=== PATIENT | female | born 1960 | race Caucasian/White ===

== ENCOUNTER → 2017-02-05 | Outpatient (CLI) | payer BC ==
[~2017-02-05] MED LIST: BYSTOLIC5 MG PO; CALCIUM 600MG+D1 TAB PO; K-DUR 10 MEQ T10 MEQ PO; NICODERM C14 MG/PATC TD; PRINZIDE 12.5 M1 TA1 PO; PROLIA60 MG/ML SC; PROTONIX 40MG T40 MG PO; ULTRAM 50MG TAB50 MG PO; XANAX 0.5MG0.5 MG PO; ZESTRIL 5MG5 MG PO; ZOFRAN 4MG T4 MG/TAB PO; ZOFRAN ODT4 MG PO
== END ==
LOC: MC.RAD 08:00
DX: Z12.31 Encounter for screening mammogram for malignant neoplasm of breast (principal)

== ENCOUNTER 2017-02-11 17:52 | Inpatient (IN) | payer BC ==
[~2017-02-11] VITALS: Ht 157.5 cm; Wt 47.4 kg
[2017-02-11] VITALS (190 sets, daily range): BP systolic 152; BP diastolic 84; PULSE 75; TEMP 99.7; O2SAT 79–100
[~2017-02-11 17:52] MED LIST changes: -NICODERM C14 MG/PATC TD; -PROTONIX 40MG T40 MG PO
[2017-02-11 18:25] LABS: BASO % 0.7 % (0.0-2.0); EOS # 0.1 (0.0-0.7); EOS % 0.9 % (0-4.0); GRAN # 4.3 (1.4-6.5); GRAN % 74.3 % (42.2-75.2); HEMOGLOBIN 13.5 g/dl (12.5-16.0); LYMPH # 0.9 (1.2-3.4); LYMPH % 16.1 % (20.0-51.0); MEAN CELL VOLUME 93 fl (80.0-100.0); MEAN CORPUSCULAR HEMOGLOBIN 35 pg (27.0-31.0); MEAN CORPUSCULAR HGB CONC 37 g/dl (33.0-37.0); MEAN PLATELET VOLUME 8.3 fl (7.4-10.4); MONO # 0.5 (0.1-0.6); MONO % 7.7 % (1.7-9.3); PLATELET COUNT 263 K/mm3 (130-400); RED BLOOD COUNT 3.91 M/mm3 (4.10-5.30); REDCELL DISTRIBUTION WIDTH-CV 11.4 % (11.5-14.5); WHITE BLOOD COUNT 5.8 K/mm3 (4.8-10.8)
[2017-02-11 18:30] LABS: HEMATOCRIT 36.5 % (37.0-47.0)
[2017-02-11 18:51] LABS: ADJUSTED CALCIUM 9.1 mg/dL (8.4-10.2); ALANINE AMINOTRANSFERASE 55 U/L (9-52); ALBUMIN 4.8 gm/dL (3.5-5.0); ALKALINE PHOSPHATASE 75 U/L (50-136); ANION GAP 14 mmol/L (7-16); BILIRUBIN,TOTAL 1.1 mg/dL (0.0-1.0); BLOOD UREA NITROGEN 8 mg/dL (7-17); CALCIUM 9.7 mg/dL (8.4-10.2); CARBON DIOXIDE 26 mmol/L (22-30); GLUCOSE 98 mg/dL (74-106); LIPASE 257 U/L (23-300)
[2017-02-11 18:54] LABS: CHLORIDE 74 mmol/L (98-107); SODIUM 114 mmol/L (137-145)
[2017-02-11 18:58] LABS: POTASSIUM 4.1 mmol/L (3.4-5.0)
[2017-02-11 19:24] LABS: PH 8 (5-8); SQUAMOUS EPITHELIAL None Seen /hpf; URINE APPEARANCE Hazy; URINE BACTERIA None Seen /hpf; URINE BILIRUBIN Negative (NEGATIVE); URINE BLOOD Negative (NEGATIVE); URINE COLOR Yellow; URINE GLUCOSE Negative (NEGATIVE); URINE KETONE Trace (NEGATIVE); URINE RBC 0-2 /hpf; URINE UROBILINOGEN Negative (NEGATIVE); URINE WBC None Seen /hpf
[2017-02-11 20:40] LABS: CALCIUM 9.9 mg/dL (8.4-10.2); CREATININE, serum 0.5 mg/dL (0.52-1.25); POTASSIUM 4.3 mmol/L (3.4-5.0)
[2017-02-11 22:28] LABS: CALCIUM 9.5 mg/dL (8.4-10.2); CREATININE, serum 0.55 mg/dL (0.52-1.25); POTASSIUM 3.8 mmol/L (3.4-5.0)
[2017-02-12] VITALS (701 sets, daily range): BP systolic 89–179; BP diastolic 51–86; PULSE 52–70; TEMP 37; O2SAT 50–100
[2017-02-12 01:25] LABS: CALCIUM 9.2 mg/dL (8.4-10.2); CREATININE, serum 0.64 mg/dL (0.52-1.25); POTASSIUM 3.9 mmol/L (3.4-5.0)
[2017-02-12 03:19] LABS: CALCIUM 8.7 mg/dL (8.4-10.2); CREATININE, serum 0.58 mg/dL (0.52-1.25); POTASSIUM 3.3 mmol/L (3.4-5.0)
[2017-02-12 05:47] LABS: EOS # 0.2 (0.0-0.7); EOS % 5.5 % (0-4.0); GRAN # 1.9 (1.4-6.5); GRAN % 48.4 % (42.2-75.2); HEMATOCRIT 37.6 % (37.0-47.0); HEMOGLOBIN 13.2 g/dl (12.5-16.0); LYMPH # 1.1 (1.2-3.4); LYMPH % 27.9 % (20.0-51.0); MEAN CELL VOLUME 97 fl (80.0-100.0); MEAN CORPUSCULAR HEMOGLOBIN 34 pg (27.0-31.0); MEAN CORPUSCULAR HGB CONC 35 g/dl (33.0-37.0); MEAN PLATELET VOLUME 8.4 fl (7.4-10.4); MONO # 0.6 (0.1-0.6); MONO % 16.7 % (1.7-9.3); PLATELET COUNT 241 K/mm3 (130-400); RED BLOOD COUNT 3.88 M/mm3 (4.10-5.30); REDCELL DISTRIBUTION WIDTH-CV 11.9 % (11.5-14.5); WHITE BLOOD COUNT 3.8 K/mm3 (4.8-10.8)
[2017-02-12 05:55] LABS: ADJUSTED CALCIUM 8.6 mg/dL (8.4-10.2); ALBUMIN 4.2 gm/dL (3.5-5.0); BILIRUBIN,TOTAL 1.3 mg/dL (0.0-1.0); CALCIUM 8.8 mg/dL (8.4-10.2); CREATININE, serum 0.62 mg/dL (0.52-1.25); POTASSIUM 3.4 mmol/L (3.4-5.0); TOTAL PROTEIN 7.2 gm/dL (6.4-8.2)
[2017-02-12 10:23] LABS: CALCIUM 8.8 mg/dL (8.4-10.2); CREATININE, serum 0.58 mg/dL (0.52-1.25); POTASSIUM 3.3 mmol/L (3.4-5.0)
[2017-02-13 00:35] VITALS: BP 150/70; PULSE 60; TEMP 97.7
[2017-02-13 02:27] VITALS: BP 153/76; PULSE 50; TEMP 98.1
[2017-02-13 06:02] VITALS: BP 134/73; PULSE 54
[2017-02-13 07:46] LABS: ADJUSTED CALCIUM 8.3 mg/dL (8.4-10.2); CALCIUM 8.3 mg/dL (8.4-10.2); CREATININE, serum 0.49 mg/dL (0.52-1.25); POTASSIUM 3.6 mmol/L (3.4-5.0); TOTAL PROTEIN 6.8 gm/dL (6.4-8.2)
[2017-02-13 08:31] VITALS: BP 137/81; PULSE 58; TEMP 98.7
[2017-02-13] MEDS ORDERED: NICODERM C14 MG/PATC TD (09:57)
[2017-02-13 10:04] VITALS: BP 146/66; PULSE 59; TEMP 97.6
[2017-02-13] MEDS ORDERED: PROTONIX 40MG T40 MG PO (10:14)
== END 2017-02-13 13:10 | disposition home or self-care (01) | DRG 640 ==
LOC: COL.ER 17:52 → MEDICAL 19:44 → ICU 19:44 → MEDICAL 02-12 14:44
PROVIDERS: Emergency Medicine; Family Medicine; Internal Medicine Nephrology
DX: E87.1 Hypo-osmolality and hyponatremia (principal); E43 Unspecified severe protein-calorie malnutrition; Z68.1 Body mass index [BMI] 19.9 or less, adult; I10 Essential (primary) hypertension; F17.210 Nicotine dependence, cigarettes, uncomplicated; K29.20 Alcoholic gastritis without bleeding; R51 Headache; E87.6 Hypokalemia; F10.20 Alcohol dependence, uncomplicated; Y90.0 Blood alcohol level of less than 20 mg/100 ml
CPT/HCPCS: 99223-AI; 99232-AI; 99239; C9113; J1940; J2405; J2550; J3360; J3480; J7030

== ENCOUNTER → 2018-05-09 | Outpatient (CLI) | payer BC ==
[~2018-05-09] MED LIST changes: +NICODERM C14 MG/PATC TD; +PROTONIX 40MG T40 MG PO
== END ==
LOC: MC.RAD 13:20
DX: Z12.31 Encounter for screening mammogram for malignant neoplasm of breast (principal)

== ENCOUNTER → 2020-01-26 | Outpatient (CLI) | payer BC | LOC: MC.RAD 10:00 | DX: Z12.31 Encounter for screening mammogram for malignant neoplasm of breast (principal) ==

== ENCOUNTER → 2021-01-27 | Outpatient (CLI) | payer BC | LOC: MC.RAD 09:00 | DX: Z12.31 Encounter for screening mammogram for malignant neoplasm of breast (principal) ==

== ENCOUNTER 2021-09-08 19:04 | Emergency (ER) | payer BC ==
[~2021-09-08] VITALS: Ht 157.5 cm; Wt 47.3 kg
[2021-09-08 22:15] VITALS: BP 148/78; PULSE 63; TEMP 98
== END 2021-09-08 22:15 | disposition home or self-care (01) ==
LOC: COL.ER 19:04
DX: R51.9 Headache, unspecified (principal)
CPT/HCPCS: J0780; J1100; J1200; J1885

== ENCOUNTER 2021-11-22 08:45 | Outpatient (RCR) | payer BC | END 2021-11-28 | disposition home or self-care (01) | LOC: WSST | DX: G52.3 Disorders of hypoglossal nerve (principal) ==

== ENCOUNTER 2021-12-20 08:45 | Outpatient (RCR) | payer BC | END 2021-12-28 | disposition home or self-care (01) | LOC: WSST | DX: R47.81 Slurred speech (principal); R13.11 Dysphagia, oral phase; G52.3 Disorders of hypoglossal nerve ==

== ENCOUNTER 2022-01-24 08:45 | Outpatient (RCR) | payer BC | END 2022-01-28 | disposition home or self-care (01) | LOC: WSST | DX: R47.81 Slurred speech (principal); R13.11 Dysphagia, oral phase; G52.3 Disorders of hypoglossal nerve ==

== ENCOUNTER → 2022-02-19 | Outpatient (CLI) | payer BC | LOC: MC.RAD 08:00 | DX: Z12.31 Encounter for screening mammogram for malignant neoplasm of breast (principal) ==

== ENCOUNTER 2022-02-21 12:45 | Outpatient (RCR) | payer BC | END 2022-02-28 | disposition home or self-care (01) | LOC: WSST | DX: R47.81 Slurred speech (principal); R13.11 Dysphagia, oral phase; G52.3 Disorders of hypoglossal nerve ==

== ENCOUNTER → 2022-09-26 | Outpatient (CLI) | payer BC | LOC: COL.RAD 08:00 | DX: Z12.2 Encounter for screening for malignant neoplasm of respiratory organs (principal); F17.200 Nicotine dependence, unspecified, uncomplicated ==

== ENCOUNTER 2023-04-11 11:03 | Emergency (ER) | payer BC ==
[~2023-04-11] VITALS: Ht 157.5 cm; Wt 45.5 kg
[~2023-04-11 11:03] MED LIST changes: +CAMPRAL333 M1; +IBU600 MG PO; +LASIX 20MG TABL20 MG PO; +NORCO 325 MG-51 TAB PO; +SEROQUEL 1100 MG/TAB PO; +TOPROL XL 50MG50 MG PO; +TOPROL XL200 MG PO; +VITAMIN D 400400 IU PO
[2023-04-11 12:01] LABS: COLLECTION METHOD CLEAN CATCH
[2023-04-11 12:30] LABS: URINE APPEARANCE Clear (CLEAR/HAZY); URINE BLOOD Negative (NEGATIVE); URINE COLOR Yellow (YELLOW); URINE GLUCOSE Negative (NEGATIVE); URINE KETONE Negative (NEGATIVE); URINE NITRATE Negative (NEGATIVE); URINE PROTEIN(semi-quant) 1+ (NEGATIVE); URINE RBC 0-2 /hpf (0-2); URINE UROBILINOGEN 0.2 E.U/dL (0.2-1.0)
[2023-04-11 12:51] LABS: HEMATOCRIT 43.2 % (37.0-47.0); HEMOGLOBIN 15.2 g/dl (12.5-16.0); MEAN CELL VOLUME 95 fl (80.0-100.0); MEAN CORPUSCULAR HEMOGLOBIN 34 pg (27-31); MEAN CORPUSCULAR HGB CONC 35 g/dl (33.0-37.0); MEAN PLATELET VOLUME 8.6 fl (7.4-10.4); PLATELET COUNT 369 K/mm3 (130-400); RED BLOOD COUNT 4.53 M/mm3 (4.10-5.30); REDCELL DISTRIBUTION WIDTH-CV 11.8 % (11.5-14.5)
[2023-04-11 13:01] LABS: ALBUMIN 4.2 gm/dL (3.4-4.8); BILIRUBIN,TOTAL 0.8 mg/dL (0.2-1.2); CALCIUM 10.6 mg/dL (8.4-10.2); CREATININE, serum 0.63 mg/dL (0.57-1.11); POTASSIUM 4.6 mmol/L (3.5-4.5); TOTAL PROTEIN 8.1 gm/dL (6.2-8.1)
[2023-04-11 13:09] LABS: BAND 23 % (0-10); LYMPHOCYTE 3 % (20.0-51.0); NEUTROPHILS 71 % (42.0-75.2); PLATELET ESTIMATE NORMAL (NORMAL)
[2023-04-11 14:15] VITALS: TEMP 99.8
[2023-04-11 15:42] LABS: CALCIUM 9.2 mg/dL (8.4-10.2); CREATININE, serum 0.55 mg/dL (0.57-1.11); POTASSIUM 3.6 mmol/L (3.5-4.5)
[2023-04-11] MEDS ORDERED: ROXICODONE 55 MG/TAB PO (16:32)
[2023-04-11] MEDS ORDERED: ZOFRAN ODT4 MG PO (16:32)
[2023-04-11 16:55] VITALS: BP 156/92; PULSE 83
== END 2023-04-11 16:59 | disposition home or self-care (01) ==
LOC: COL.ER 11:03
PROVIDERS: Emergency Medicine
DX: J44.9 Chronic obstructive pulmonary disease, unspecified (principal); K52.9 Noninfective gastroenteritis and colitis, unspecified; E87.1 Hypo-osmolality and hyponatremia; Z98.890 Other specified postprocedural states; Z20.822 Contact with and (suspected) exposure to COVID-19
CPT/HCPCS: J2270; J2405; J2765; J7030; Q9967

== ENCOUNTER → 2024-01-08 | Outpatient (CLI) | payer MEDICARE, BC ==
[~2024-01-08] VITALS: Ht 157.5 cm; Wt 44.0 kg
[~2024-01-08] MED LIST changes: +ADVIL200 MG PO; +ASPIRIN E.C. 8181 MG PO; +CRESTOR5 MG PO; +FOLIC ACID0.4 MG PO; +NICODERM C21 MG/PATC TD; +PROBIOTIC ACID1 EAC3 PO; +ROXICODONE 55 MG/TAB PO; +Regadenoson 0.08 MG/ML 5 ML SYRINGE IV SCH; +ZOLOFT 50MG50 MG PO
[2024-01-08 07:29] VITALS: BP 176/93; PULSE 58; TEMP 97.9
[2024-01-08 08:42] VITALS: BP 190/98; PULSE 60
[2024-01-08 08:45] VITALS: BP 176/95; PULSE 84
[2024-01-08 08:46] VITALS: BP 186/99; PULSE 93
[2024-01-08 08:47] VITALS: BP 182/104; PULSE 93
[2024-01-08 08:48] VITALS: BP 183/105; PULSE 91
== END ==
LOC: COL.RAD 07:00
DX: M54.2 Cervicalgia (principal); I10 Essential (primary) hypertension; E78.5 Hyperlipidemia, unspecified; F17.200 Nicotine dependence, unspecified, uncomplicated; Z86.73 Personal history of transient ischemic attack (TIA), and cerebral infarction without residual deficits
CPT/HCPCS: A9500-JZ; J2785

== ENCOUNTER → 2024-03-30 | Outpatient (CLI) | payer MEDICARE, BC ==
[~2024-03-30] MED LIST changes: -Regadenoson 0.08 MG/ML 5 ML SYRINGE IV SCH
== END ==
LOC: MC.RAD 07:50
DX: Z12.31 Encounter for screening mammogram for malignant neoplasm of breast (principal)